=== PATIENT | male | born 1970 | race Caucasian/White ===

== ENCOUNTER 2021-08-11 20:49 | Emergency (ER) | payer OTHER ==
[~2021-08-11] VITALS: Ht 180.3 cm; Wt 92.4 kg
[2021-08-11] MEDS ORDERED: KETOROLAC 60MG 2ML VIAL IM ONE (23:50)
[2021-08-11] MEDS ORDERED: LIDOCAINE 5% (LIDODERM) PATCH TD ONE (23:50)
[2021-08-12] MEDS ORDERED: LIDO1PAD TOP (02:00)
[2021-08-12] MEDS ORDERED: NAPR-837 PO (02:00)
[2021-08-12] MEDS ORDERED: METH-1165 PO (02:00)
[2021-08-12 02:19] VITALS: BP 123/65
[2021-08-12] MEDS ORDERED: **NOTE PATIENT COMMENT** MISC XX ONE (12:00)
== END 2021-08-12 02:20 | disposition home or self-care (01) ==
LOC: M ED 20:49
DX: S32.019A Unspecified fracture of first lumbar vertebra, initial encounter for closed fracture (principal); N20.0 Calculus of kidney; W10.9XXA Fall (on) (from) unspecified stairs and steps, initial encounter
CPT/HCPCS: 72131; 96372; 99283; J1885

== ENCOUNTER → 2021-08-19 | Outpatient (CLI) | payer OTHER ==
[~2021-08-19] MED LIST: LIDO1PAD TOP; METH-1165 PO; NAPR-837 PO
[2021-08-19 11:17] LABS: BASO # 0.1 10^3/uL (0.0-0.2); BASO % 0.9 % (0.0-1.0); EOS # 0.3 10^3/uL (0.0-0.5); EOS % 4.9 % (0.0-3.0); HEMOGLOBIN 13.1 g/dl (13.5-17.5); LYMPH # 1.3 10^3/uL (1.5-5.0); LYMPH % 23.5 % (24.0-44.0); MEAN CORPUSCULAR HEMOGLOBIN 28.4 pg (27.0-33.0); MEAN CORPUSCULAR HGB CONC 32.8 g/dl (32.0-36.5); MEAN CORPUSCULAR VOLUME 86.8 fl (80.0-96.0); MONO # 0.4 10^3/uL (0.0-0.8); MONO % 6.7 % (2.0-8.0); NEUTROPHILS # 3.6 10^3/uL (1.5-8.5); NEUTROPHILS % 63.8 % (36.0-66.0); PLATELET COUNT, AUTOMATED 245 10^3/uL (150-450); RED BLOOD COUNT 4.61 10^6/uL (4.30-6.10); WHITE BLOOD COUNT 5.7 10^3/uL (4.0-10.0)
[2021-08-19 11:35] LABS: ERYTHROCYTE SEDIMENTATION RATE 10 mm/hr (0-20)
[2021-08-19 12:50] LABS: ALT/SGPT 39 U/L (12-78); BILIRUBIN,TOTAL 0.5 MG/DL (0.2-1.0); BLOOD UREA NITROGEN 18 MG/DL (7-18); CALCIUM LEVEL 9.3 MG/DL (8.5-10.1); CARBON DIOXIDE LEVEL 25 MEQ/L (21-32); CHLORIDE LEVEL 111 MEQ/L (98-107); CREATININE FOR GFR 1.03 MG/DL (0.70-1.30); GLOMERULAR FILTRATION RATE > 60.0 (>56); GLUCOSE, FASTING 93 MG/DL (70-100); POTASSIUM SERUM 4.2 MEQ/L (3.5-5.1); SODIUM LEVEL 143 MEQ/L (136-145); TOTAL PROTEIN 6.8 GM/DL (6.4-8.2)
[2021-08-20 14:00] LABS: ALBUMIN 4.21 GM/DL (3.29-5.55); ALBUMIN % 61.9 % (55.8-66.1); ALPHA-1-GLOBULIN % 4.1 % (2.9-4.9); ALPHA-2-GLOBULINS % 9.5 % (7.1-11.8); BETA-1-GLOBULINS % 6.3 % (4.7-7.2); BETA-2-GLOBULINS % 6.4 % (3.2-6.5); GAMMA GLOBULIN % 11.8 % (11.1-18.8)
[2021-08-20 14:01] LABS: ALPHA-1-GLOBULINS 0.28 GM/DL (0.17-0.41); ALPHA-2-GLOBULINS 0.65 GM/DL (0.42-0.99); BETA-1-GLOBULINS 0.43 GM/DL (0.28-0.60); BETA-2-GLOBULINS 0.44 GM/DL (0.19-0.55)
[2021-08-24 19:07] LABS: ALK PHOSPHATASE BONE SPECIFIC 17.5 ug/L (7.5-26.1); TESTOSTERONE FREE (DIRECT) 8.1 pg/mL (7.2-24.0)
== END ==
LOC: M LAB 10:27
PROVIDERS: ATTEND Orthopaedic Surgery
DX: S32.009A Unspecified fracture of unspecified lumbar vertebra, initial encounter for closed fracture (principal); X58.XXXA Exposure to other specified factors, initial encounter; Y92.9 Unspecified place or not applicable; Y93.9 Activity, unspecified; Y99.9 Unspecified external cause status

== ENCOUNTER → 2021-08-19 | Outpatient (CLI) | payer OTHER | LOC: M SOG 08:05 | PROVIDERS: ATTEND Orthopaedic Surgery | DX: Z47.89 Encounter for other orthopedic aftercare (principal); M53.86 Other specified dorsopathies, lumbar region; M48.56XA Collapsed vertebra, not elsewhere classified, lumbar region, initial encounter for fracture ==

== ENCOUNTER → 2021-08-24 | Outpatient (CLI) | payer OTHER ==
[~2021-08-24] MED LIST changes: +PROHANCE 279.3MG/ML 15ML VIAL As Ordered ONE; +PROHANCE 279.3MG/ML 5ML VIAL As Ordered ONE
== END ==
LOC: M RAD 14:30
PROVIDERS: ATTEND Orthopaedic Surgery
DX: S32.001A Stable burst fracture of unspecified lumbar vertebra, initial encounter for closed fracture (principal); M51.26 Other intervertebral disc displacement, lumbar region; X58.XXXA Exposure to other specified factors, initial encounter; Y92.9 Unspecified place or not applicable; Y93.9 Activity, unspecified; Y99.9 Unspecified external cause status; M47.816 Spondylosis without myelopathy or radiculopathy, lumbar region
CPT/HCPCS: 72158; A9576